=== PATIENT | female | born 1930 | race Caucasian/White ===

== ENCOUNTER → 2018-01-30 | Outpatient (CLI) | payer OTHER ==
[~2018-01-30] MED LIST: ALBUTEROL2.5 MG/31 INH; CARAFATE 1 GM TA1 G1 PO; EVISTA PO; HAIR, SKIN & N1 EAC3 PO; IBUPROFEN 200200 M1 PO; IRON325 PO; KEFLEX500 MG PO; LEXAPRO5 MG; MULTIVITAMINS1 EAC7 PO; NORVASC 2.5 MG2.5 M1 PO; PRILOSEC2.5 MG PO; TOPROL XL25 MG PO; TOPROL XL50 MG PO; VITAMIN D3400 UNIT PO; XARELTO15 MG PO; XARELTO20 MG PO
[2018-01-30 12:17] VITALS: BP 114/63; BP 141/86
[2018-01-30 13:19] VITALS: BP 116/75
[2018-01-30 14:43] VITALS: BP 114/63; BP 124/70; BP 148/85
[2018-01-30 16:36] VITALS: BP 116/75
== END ==
LOC: OPONC 10:29
DX: M81.0 Age-related osteoporosis without current pathological fracture (principal)
CPT/HCPCS: 91030

== ENCOUNTER → 2018-02-01 | Outpatient (CLI) | payer OTHER ==
[~2018-02-01] VITALS: Ht 165.1 cm; Wt 59.0 kg
--- NOTE | ~2018-02-01 | P ---
[facility] [place] [address] PROCEDURE REPORT Name: YUMIKO ASIF Room #: REG [facility]#: [id number] Admission: 02/01/18 Attend Phys: Mehdi Fields Discharge: Date of : 34 Report #: [id number] THIS REPORT FOR: //name// CC: Mehdi Orozco MD DATE OF SERVICE: 02/01/2018 PROCEDURE PERFORMED: Upper endoscopy with APC cautery. 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 The patient has undergone several upper endoscopies by myself in the past with APC cautery, was actually doing quite well with a normal hemoglobin, but recently has had a melanotic-type stools, drop in her hemoglobin. She was seen in the office on 01/29/2018 and her recent hemoglobin was 8.5. We then repeated her hemoglobin that day, it fell to 8.0. She has now received 2 units of packed cells the day before yesterday as an outpatient. She has been holding her anticoagulation therapy, which is Xarelto for her history of atrial fibrillation for the last 2 days. DESCRIPTION OF PROCEDURE: The risks and benefits of the procedure were explained to the patient, those risks including but not limited to bleeding, perforation, the risk of sedation. She understood these risks and gave informed consent. Sedation was given using propofol per anesthesia. Next, using a standard Fujinon upper endoscope, the scope was placed in the patient's mouth and advanced under direct vision to the esophagus, stomach and into the second portion of the duodenum. The larynx was normal in appearance. The esophagus was normal throughout. The GE junction was normal. Overall, the gastric mucosa was normal in the fundus and the body. In the gastric antrum, there was vascular ectasia consistent again with her history of GAVE. There was no active bleeding. The pylorus was normal and patent. The duodenal bulb, first and second portion were all normal. The scope was then brought back up into the patient's antrum and using APC cautery, all areas of vascular ectasia were cauterized. There was no evidence of bleeding after cauterization. At this point, the scope was then withdrawn and the procedure terminated. The patient tolerated the procedure well. IMPRESSION: 1. GAVE changes noted again in the gastric antrum, status post APC cautery. 2. Otherwise, normal upper endoscopy. RECOMMENDATIONS: 1. Observe the patient post-procedure. 2. Restart anticoagulation therapy tomorrow. [address] [address] PROCEDURE REPORT Name: YMUIKO ASIF Room #: REG [facility]#: [id number] Admission: 02/01/18 Attend Phys: Mehdi Fields Discharge: Date of : 34 Report #: [id number] 3. Continue PPI and Carafate. 4. We will repeat hemoglobin next week. Thank you for allowing me to participate in her care. <ELECTRONICALLY SIGNED> By: Mehdi Marion MD 02/08/18 0804 [id number] 1245 Mehdi Marion MD /nt
== END | disposition home or self-care (01) ==
LOC: GI
DX: K31.819 Angiodysplasia of stomach and duodenum without bleeding (principal); I10 Essential (primary) hypertension; I48.91 Unspecified atrial fibrillation; K21.9 Gastro-esophageal reflux disease without esophagitis; F32.89 Other specified depressive episodes; F41.8 Other specified anxiety disorders; Z86.73 Personal history of transient ischemic attack (TIA), and cerebral infarction without residual deficits; Z79.01 Long term (current) use of anticoagulants; Z90.710 Acquired absence of both cervix and uterus; Z98.890 Other specified postprocedural states; Z79.899 Other long term (current) drug therapy; Z85.3 Personal history of malignant neoplasm of breast; Z88.0 Allergy status to penicillin
CPT/HCPCS: 62110; 62900

== ENCOUNTER → 2018-05-03 | Outpatient (CLI) | payer OTHER | LOC: RAD 08:52 | DX: I51.7 Cardiomegaly (principal); J98.11 Atelectasis; J90 Pleural effusion, not elsewhere classified; J40 Bronchitis, not specified as acute or chronic ==

== ENCOUNTER → 2018-09-25 | Outpatient (CLI) | payer OTHER | LOC: RAD 14:14 | DX: I51.7 Cardiomegaly (principal); M25.552 Pain in left hip; M51.36 Other intervertebral disc degeneration, lumbar region; M41.86 Other forms of scoliosis, lumbar region ==

== ENCOUNTER → 2019-08-22 | Outpatient (CLI) | payer OTHER | LOC: RAD 11:24 | DX: M43.12 Spondylolisthesis, cervical region (principal); M47.812 Spondylosis without myelopathy or radiculopathy, cervical region; Z88.0 Allergy status to penicillin; Z88.8 Allergy status to other drugs, medicaments and biological substances ==